=== PATIENT | male | born 1960 | race Caucasian/White ===

== ENCOUNTER 2017-04-20 19:46 | Emergency (ER) | payer OTHER ==
[~2017-04-20] VITALS: Ht 185.4 cm; Wt 73.9 kg
--- NOTE | 2017-04-20 20:17 | RAD ---
Exam performed: CT scan of the head without contrast. Date of Service: 04/20/2017. Comparison: None available. Clinical History: Fall, laceration to back of head. Technique: Helical acquisitions are obtained from the foramen magnum to the vertex without intravenous administration of contrast. Findings: The ventricles are midline without evidence of dilatation. Normal castorena-white differentiation is maintained. There is no extra axial fluid collection, intraparenchymal hemorrhage or mass lesion. The visualized portions of the orbits, paranasal sinuses and the mastoid air cells appear clear. The calvarium is intact. Impression: 1. No acute intracranial process detected. PQRS Compliance Statement: One or more of the following individualized dose reduction techniques were utilized for this examination: 1. Automated exposure control 2. Adjustment of the mA and/or kV according to patient size 3. Use of iterative reconstruction technique Electronically signed by: Lyndsey Abreu MD (04/20/2017 8:13 PM) [facility]
[2017-04-20] MEDS ORDERED: DIPHTH,PERTUSS(ACELL),TET TOX 0.5 ML DISP.SYRIN. VAX IM ONE (20:30)
[2017-04-20] MEDS ORDERED: LIDOCAINE 1%/EPI 1:100,000 20 ML VIAL. INJ ONE (20:30)
[2017-04-20] MEDS ORDERED: MORPHINE SULFATE 4 MG/ML DISP.SYRIN. IV ONE ×3 (20:30→23:00)
--- NOTE | 2017-04-20 21:07 | PHYS DOC ---
Past Medical History Past Medical History: Other Additional Past Medical Histor: bilat inguinal hernias Past Surgical History: Tonsillectomy, Other Additional Past Surgical Histo: Right inguinal hernia repair, & wisdom teeth Alcohol Use: None Drug Use: None Adult General Chief Complaint Chief Complaint: MECHANICAL FALL HPI HPI Patient is a 56 year old male who presents with a fall off a ladder. The report was that the patient fell proximally 7 feet from a ladder and struck the back of his head on concrete below. His was a bystander and stated the patient did not lose consciousness but was the use after the incident. He was unable to get up from the scene due to left hip pain. He also had a laceration to the back the head. He is unsure of his last tetanus immunization, he denies that he takes any blood thinners, no drugs or alcohol use today. He arrives via EMS with a c-collar in place and a wrap around his head. He received 200 g IV fentanyl in route. 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 He has bilateral inguinal hernias which he wears a wrap 4. Review of Systems Review of Systems Constitutional: Denies fever or chills [] Eyes: Denies change in visual acuity, redness, or eye pain [] HENT: Denies nasal congestion or sore throat [] Respiratory: Denies cough or shortness of breath [] Cardiovascular: Denies chest pain GI: Denies abdominal pain, nausea, vomiting, bloody stools or diarrhea [] : Denies dysuria or hematuria [] Musculoskeletal: Denies back pain, reports left hip pain Integument: Denies rash or skin lesions [] Neurologic: Denies headache, focal weakness or sensory changes [] Current Medications Current Medications Current Medications Medications (Trade) Dose Ordered Sig/Mohamud Start Time Stop Time Status Last Admin Dose Admin Diphtheria/ Tetanus/Acell Pertussis (Boostrix) 0.5 ml ONCE ONCE 04/20/17 20:30 04/20/17 20:31 DC 04/20/17 21:13 0.5 ML Lidocaine/ Epinephrine (Xylocaine 1%-Epi 1:100,000) 20 ml 1X ONCE 04/20/17 20:30 04/20/17 20:31 DC 04/20/17 20:30 20 ML Morphine Sulfate 4 mg 1X ONCE 04/20/17 21:30 04/20/17 21:31 Allergies Allergies Allergies Coded Allergies Type Severity Reaction Last Updated Verified No Known Drug Allergies 04/20/17 No Physical Exam Physical Exam Constitutional: Well developed, well nourished, no acute distress, non-toxic appearance. [] HENT: Normocephalic, posterior hematoma with 1 cm laceration with moderate hemostasis, no bogginess bilateral external ears normal, oropharynx moist, no oral exudates, nose normal. [] Eyes: PERRLA, EOMI, conjunctiva normal, no discharge. [] Neck: Normal range of motion, no midline step-off sore tenderness, supple, no stridor. [] Cardiovascular:Heart rate regular with regular rhythm, no murmur [] Lungs & Thorax: Bilateral breath sounds clear to auscultation, no wheeze or crackles without radial Abdomen: soft, no tenderness, no masses, no pulsatile masses. no guarding or peritoneal signs. Skin: Warm, dry, no erythema, no rash. [] Back: No tenderness, no CVA tenderness. [] Extremities: pelvis stable, Tenderness to palpation over the left lateral hip with inability to fully extend at the hip joint, hip flexors and a 45 angle,no ttp of the knee/no deformity. DP pulses intact, no obvious deformity or shortening, right lower extremity and bilateral upper extremities are nontender nondeformed Neurologic: Alert and oriented X 3, normal motor function with exception to affected hip, normal sensory function, no focal deficits noted. [] Psychologic: Affect normal, judgement normal, mood normal. [] Current Patient Data Vital Signs Vital Signs Date Time Temp Pulse Resp B/P (MAP) Pulse Ox O2 Delivery O2 Flow Rate FiO2 04/20/17 21:12 15 98 04/20/17 20:30 97.8 60 123/83 (96) Room Air 97.8 EKG EKG [] Radiology/Procedures Radiology/Procedures CT head: Findings: The ventricles are midline without evidence of dilatation. Normal castorena-white differentiation is maintained. There is no extra axial fluid collection, intraparenchymal hemorrhage or mass lesion. The visualized portions of the orbits, paranasal sinuses and the mastoid air cells appear clear. The calvarium is intact. Impression: 1. No acute intracranial process detected. Pelvis/left hip: No obvious femur injury, there is some irregularity of the left acetabulum, 3 views, interpreted by in Course & Med Decision Making Course & Med Decision Making Pertinent Labs and Imaging studies reviewed. (See chart for details) Patient seen to tetanus immunization, 4 mg IV morphine. His scalp wound was irrigated, using 1% lidocaine with epi infiltrated, 1 staple was placed over the small laceration. Patient tolerated well. Patient received an additional dose of IV morphine prior to the CT of his pelvis being performed. CT pending at 2100 and care was transferred to Dr. Lobato pending the results. Dragon Disclaimer Dragon Disclaimer This electronic medical record was generated, in whole or in part, using a voice recognition dictation system. Departure Departure Impression: Primary Impression: Scalp laceration Additional Impressions: Hematoma Injury of left hip Referrals: NO PCP (PCP) Problem Qualifiers DIANEN KITCHEN MD Apr 20, 2017 21:07
--- NOTE | 2017-04-20 22:17 | RAD ---
Exam performed: CT pelvis without contrast HISTORY: Patient fell from a ladder, severe left hip pain DATE OF SERVICE: 04/20/2017. COMPARISON: None available TECHNIQUE: Contiguous helical acquisitions are obtained through the pelvis without IV contrast. Sagittal and coronal reformatted images are obtained and reviewed. FINDINGS: Severely comminuted left acetabular fracture is seen involving the acetabular roof. The fracture line extends into the left iliac bone superiorly laterally. The fracture line extends into the anterior as well as the posterior column of the acetabulum. There is a fracture left inferior pubic ramus. There is a adjacent pelvic hematoma causing mild mass effect on the urinary bladder. Bilateral sacroiliac joints and the right hip joint appears preserved. The small and large bowel loops are nondilated and unremarkable. The urinary bladder is distended. No abnormal fluid collections or pelvic mass lesion seen. IMPRESSION: Severely comminuted left acetabular fracture with fractures involving the left inferior pubic ramus. PQRS Compliance Statement: One or more of the following individualized dose reduction techniques were utilized for this examination: 1. Automated exposure control 2. Adjustment of the mA and/or kV according to patient size 3. Use of iterative reconstruction technique Electronically signed by: Lyndsey Abreu MD (04/20/2017 10:14 PM) [facility]
[2017-04-20 23:01] LABS: BASO % 1 % (0-3); EOS % 3 % (0-3); HEMATOCRIT 41.3 % (39.0-53.0); HEMOGLOBIN 13.8 g/dL (13.0-17.5); LYMPH # 2.2 x10^3/uL (1.0-4.8); LYMPH % 28 % (24-48); MEAN CORPUSCULAR HEMOGLOBIN 32 pg (25-35); MEAN CORPUSCULAR HGB CONC 33 g/dL (31-37); MEAN CORPUSCULAR VOLUME 95 fL (79-100); MONO % 5 % (0-9); NEUT % 63 % (31-73); PLATELET COUNT 171 x10^3/uL (140-400); RED BLOOD COUNT 4.36 x10^6/uL (4.30-5.70); RED CELL DISTRIBUTION WIDTH 13.1 % (11.5-14.5); WHITE BLOOD COUNT 7.7 x10^3/uL (4.0-11.0)
[2017-04-20 23:11] LABS: INR 1.1 (0.8-1.1); PROTHROMBIN TIME PATIENT 13.1 SEC (11.7-14.0)
[2017-04-20 23:12] LABS: CALCIUM 8.9 mg/dL (8.5-10.1); CREATININE 1.2 mg/dL (0.7-1.3); GFR 62.9; POTASSIUM 3.9 mmol/L (3.5-5.1)
--- NOTE | 2017-04-20 23:16 | PHYS DOC ---
Past Medical History Past Medical History: Other Additional Past Medical Histor: bilat inguinal hernias Past Surgical History: Tonsillectomy, Other Additional Past Surgical Histo: Right inguinal hernia repair, & wisdom teeth Alcohol Use: None Drug Use: None Adult General Chief Complaint Chief Complaint: MECHANICAL FALL HPI HPI as per hpi from previous MD Review of Systems Review of Systems Constitutional: Denies fever or chills [] Eyes: Denies change in visual acuity, redness, or eye pain [] HENT: head pain Respiratory: Denies cough or shortness of breath [] Cardiovascular: No additional information not addressed in HPI [] GI: Denies abdominal pain, nausea, vomiting, bloody stools or diarrhea [] : Denies dysuria or hematuria [] Musculoskeletal:left hip pain Integument: Denies rash or skin lesions [] Neurologic: Denies headache, focal weakness or sensory changes [] Endocrine: Denies polyuria or polydipsia [] Current Medications Current Medications Current Medications Medications (Trade) Dose Ordered Sig/Mohamud Start Time Stop Time Status Last Admin Dose Admin Diphtheria/ Tetanus/Acell Pertussis (Boostrix) 0.5 ml ONCE ONCE 04/20/17 20:30 04/20/17 20:31 DC 04/20/17 21:13 0.5 ML Lidocaine/ Epinephrine (Xylocaine 1%-Epi 1:100,000) 20 ml 1X ONCE 04/20/17 20:30 04/20/17 20:31 DC 04/20/17 20:30 20 ML Morphine Sulfate 4 mg 1X ONCE 04/20/17 23:00 04/20/17 23:01 DC Allergies Allergies Allergies Coded Allergies Type Severity Reaction Last Updated Verified No Known Drug Allergies 04/20/17 No Physical Exam Physical Exam Constitutional: Well developed, well nourished, no acute distress, non-toxic appearance. [] HENT: Normocephalic, signs of basilar skull fracture, small laceration that is stapled Eyes: EOMI, conjunctiva normal, no discharge. [] Neck: Normal range of motion, no tenderness, supple, no stridor. No midline tenderness, no step-offs Cardiovascular:Heart rate regular rhythm, no murmur, deformity, no tenderness Lungs & Thorax: Bilateral breath sounds clear to auscultation, no tachypnea Abdomen: Bowel sounds normal, soft, no tenderness, no masses, no pulsatile masses. [] Skin: Warm, dry, no erythema, no rash. [] Back: No tenderness, no CVA tenderness. No step-offs Extremities: No tenderness, no cyanosis, no clubbing, ROM intact, no edema. Exception: Tenderness at left hip, no signs of compartment syndrome Neurologic: Alert and oriented X 3, normal motor function, no focal deficits noted. [] Psychologic: Affect normal, judgement normal, mood normal. [] Current Patient Data Vital Signs Vital Signs Date Time Temp Pulse Resp B/P (MAP) Pulse Ox O2 Delivery O2 Flow Rate FiO2 04/20/17 22:49 14 96 04/20/17 22:06 62 135/65 (88) Room Air 04/20/17 20:30 97.8 97.8 Lab Values Laboratory Tests Test 04/20/17 19:55 White Blood Count 7.7 x10^3/uL (4.0-11.0) Red Blood Count 4.36 x10^6/uL (4.30-5.70) Hemoglobin 13.8 g/dL (13.0-17.5) Hematocrit 41.3 % (39.0-53.0) Mean Corpuscular Volume 95 fL (79-100) Mean Corpuscular Hemoglobin 32 pg (25-35) Mean Corpuscular Hemoglobin Concent 33 g/dL (31-37) Red Cell Distribution Width 13.1 % (11.5-14.5) Platelet Count 171 x10^3/uL (140-400) Neutrophils (%) (Auto) 63 % (31-73) Lymphocytes (%) (Auto) 28 % (24-48) Monocytes (%) (Auto) 5 % (0-9) Eosinophils (%) (Auto) 3 % (0-3) Basophils (%) (Auto) 1 % (0-3) Neutrophils # (Auto) 4.8 x10^3uL (1.8-7.7) Lymphocytes # (Auto) 2.2 x10^3/uL (1.0-4.8) Monocytes # (Auto) 0.4 x10^3/uL (0.0-1.1) Eosinophils # (Auto) 0.2 x10^3/uL (0.0-0.7) Basophils # (Auto) 0.0 x10^3/uL (0.0-0.2) Laboratory Tests 04/20/17 19:55 EKG EKG [] Radiology/Procedures Radiology/Procedures CT: Acetabular fracture, pubic rami fracture, pelvic hematoma[] Course & Med Decision Making Course & Med Decision Making Pertinent Labs and Imaging studies reviewed. (See chart for details) 1704 d/w DR JACOBS accepts the transfer, [facility] [] Dragon Disclaimer Dragon Disclaimer This electronic medical record was generated, in whole or in part, using a voice recognition dictation system. Departure Departure Impression: Primary Impression: Scalp laceration Additional Impressions: Injury of left hip Hematoma Acetabular fracture Pubic ramus fracture Pelvic hematoma Disposition: 05 TRANSFER OTHER Condition: STABLE Referrals: NO PCP (PCP) Problem Qualifiers Hiram MOMIN MD Apr 20, 2017 23:16
[2017-04-20 23:30] VITALS: BP 123/64
--- NOTE | 2017-04-21 08:23 | RAD ---
Pelvic x-ray Indication: Fall with pain. Unable to move left leg. Technique: Multiple views of the pelvis Comparison: None Findings: Minimally displaced fracture through the left iliac bone noted with extension to the acetabulum. Nondisplaced fracture through the left inferior pubic ramus. No fractures of the femoral head or neck. Impression: Fracture of the left iliac bone and left inferior pubic ramus. Please see report on CT pelvis done on the same day for detailed findings.
== END 2017-04-21 00:20 | disposition short-term general hospital (02) ==
LOC: ER 19:46
DX: S32.492A Other specified fracture of left acetabulum, initial encounter for closed fracture (principal); S32.592A Other specified fracture of left pubis, initial encounter for closed fracture; S01.01XA Laceration without foreign body of scalp, initial encounter; W11.XXXA Fall on and from ladder, initial encounter; Y93.89 Activity, other specified; Y92.89 Other specified places as the place of occurrence of the external cause; Y99.8 Other external cause status
CPT/HCPCS: 12001; 36415; 70450; 72192; 73502; 80048; 85025; 85610; 90471; 90715; 96374; 96376; 99285; J2270; J3490

== ENCOUNTER 2017-06-17 09:42 | Day surgery (SDC) | payer OTHER ==
[~2017-06-17] VITALS: Ht 185.4 cm; Wt 73.9 kg
[~2017-06-17 09:42] MED LIST: ASPI325T8 PO; CALC600T4 PO; CREATINE; DEXAMETHASONE SOD PHOS 20 MG/5 ML VIAL. ONE; GLUC1CAP48 PO; HYDROmorphone 2 MG/ML VIAL IV PRN; IV RINGERS,LACTATED 1000ML 1,000 ML IV SCH; LIDOCAINE 1% PF 2 ML VIAL. ID PRN; LIDOCAINE 2% PF Vial for OR 5 ML VIAL. ONE; MELA3TAB2 PO; MIDAZOLAM HCL/PF 2 MG/2 ML VIAL. ONE; MORPHINE SULFATE 2 MG/ML DISP.SYRIN. IV PRN; NIAC500T PO; OMEG-117 PO; ONDANSETRON PF 4 MG/2 ML VIAL. IV PRN; ONDANSETRON PF 4 MG/2 ML VIAL. ONE; PROCHLORPERAZINE 10 MG/2 ML VIAL. IV PRN; PROPOFOL 20 ML IV ONE; fentaNYL PF VIAL 100 MCG/2 ML VIAL IV PRN
[2017-06-17] MEDS ORDERED: BUPIVACAINE-EPI 0.25%-1:200000 50 ML VIAL. ONE (10:29)
[2017-06-17] MEDS ORDERED: SEVOFLURANE 31 TO 60 MINUTES. IH ONE (11:27)
--- NOTE | 2017-06-17 12:10 | PDOC4 ---
Operative Note Operative Note Date 06/17/2017 Preoperative diagnosis: Left inguinal hernia Postoperative diagnosis: Same Procedure: Left inguinal hernia repair with mesh Surgeon: Esau Specimen: Cord lipoma Dictation: Patient is a 56-year-old gentleman who's complained of a painful bulge in the left groin. The procedure of left inguinal hernia repair was explained to the patient detail risks benefits were also discussed including bleeding infection alternatives to this procedure also discussed with the patient seemed understanding gave both verbal and written consent to have the procedure performed. Patient was taken to the operating room placed in the supine position general anesthesia was initiated once patient was asleep and intubated his left groin was prepped and draped usual sterile fashion using ChloraPrep and area of the external canal was injected quarter percent Marcaine with epinephrine incision was made with 10 blade scalpel was carried down through the subcutaneous tissues down to the external fascia this was partially open with 15 blade scalpel further or open meds pump scissors taking great care to protect the ilioinguinal nerve. A Caroline retractor was placed and the cord structures were encircled with a Tabor drain hernia sac was taken off of the other cord structures were returned to the floor the inguinal canal hernia sac was reduced and a mesh plug was placed in the hernia defect mesh overlay was then placed on the floor the anal canal this was sewn in circumferentially with 3-0 Prolene. The external fascia was then closed with a running 0 Vicryl the deep subcutaneous layers closed running 3-0 Vicryl and the skin was approximate 4 septic Monocryl Mastisol Steri-Strips and 4 x 4's Medpor tape were applied as dressing. The patient was awakened and extubated in the operating room taken recovery in stable condition all sponge instrument needle counts listed as correct. Estimated blood loss 10 mL KRISTEN RUDOLPH MD Jun 17, 2017 12:10
--- NOTE | 2017-06-17 12:11 | DISCH ---
DISCHARGE INSTRUCTIONS Condition on Discharge Condition on Discharge: Stable Activity After Discharge Activity Instructions for Disc: Avoid exertion Other activity instructions: No lifting >20lbs for 4 weeks Diet after Discharge Diet after Discharge: Regular Wound Incision Care Other wound/incision instructi: May shower in 24 hours Contacting the after DC Call your doctor for: If your condition worsens Follow-Up Follow up with: Dr Rudolph in 2 weeks KRISTEN RUDOLPH MD Jun 17, 2017 12:11
[2017-06-17] MEDS ORDERED: oxyCODONE/APAP 5/325 1 TAB TABLET ONE (13:04)
[2017-06-17] MEDS ORDERED: OXYC-323 PO (13:13)
[2017-06-17 13:14] VITALS: BP 127/70
[2017-06-17] MEDS ORDERED: oxyCODONE/APAP 5/325 1 TAB TABLET PO ONE (13:15)
--- NOTE | 2017-06-18 20:12 | PATHOLOGY ---
PATHOLOGY REPORT * * * * * * * * FINAL DIAGNOSIS: Segment of fibroadipose tissue, left inguinal hernia repair: - Consistent with lipoma of cord. (JPM:pit; 06/18/2017) REPORT ELECTRONICALLY SIGNED BY: Gallito Huntley M.D. DATE/TIME: 06/18/2017 14:40 * * * * * * * * GROSS PATHOLOGY: Received in formalin labeled "Aj Mirza, left inguinal cord lipoma," is a segment of lobulated fibroadipose tissue with attached fibromembranous tissue measuring 7.1 x 3.0 x 2.1 cm in maximum dimensions. Sectioning reveals homogeneous, bright yellow cut surfaces. Script Coordinator tissue is submitted in cassette A1. (TSD; 06/17/2017) INITIAL CPT CODE(S): A; 71952 Professional services performed [place] [address] Technical services performed by [facility] at [address] [place] [address], [facility] [address], [place] [address]. SPECIMEN(S) RECEIVED: A.Left inguinal cord lipoma CLINICAL HISTORY: Inguinal hernia PATIENT: AJ MIRZA /AGE: 310/14/1960 (Age: 56) PATIENT #: [id number] ALT CASE #: SPECIMEN COLLECTION DATE: 06/17/2017 SPECIMEN RECEIVED DATE: 06/17/2017 [facility] - [address] [place] [address] - PHONE: [phone] * * * END OF REPORT * * *
== END 2017-06-17 14:00 | disposition home or self-care (01) ==
LOC: SURG 09:42
PROVIDERS: ATTEND Surgery
DX: K40.90 Unilateral inguinal hernia, without obstruction or gangrene, not specified as recurrent (principal); E66.9 Obesity, unspecified; Z68.21 Body mass index [BMI] 21.0-21.9, adult; I10 Essential (primary) hypertension; F10.99 Alcohol use, unspecified with unspecified alcohol-induced disorder; F17.210 Nicotine dependence, cigarettes, uncomplicated; Z72.89 Other problems related to lifestyle
CPT/HCPCS: 49505; 88304; A4215; C1781; J0690; J1100; J2250; J2405; J2704; J3010; J7120; J2001

== ENCOUNTER 2020-02-27 12:00 | Emergency (ER) | payer OTHER ==
[~2020-02-27 12:00] MED LIST changes: -CALC600T4 PO; +CALC600T6 PO; -DEXAMETHASONE SOD PHOS 20 MG/5 ML VIAL. ONE; -HYDROmorphone 2 MG/ML VIAL IV PRN; -IV RINGERS,LACTATED 1000ML 1,000 ML IV SCH; -LIDOCAINE 1% PF 2 ML VIAL. ID PRN; -LIDOCAINE 2% PF Vial for OR 5 ML VIAL. ONE; -MELA3TAB2 PO; +MELA3TAB4 PO; -MIDAZOLAM HCL/PF 2 MG/2 ML VIAL. ONE; -MORPHINE SULFATE 2 MG/ML DISP.SYRIN. IV PRN; -ONDANSETRON PF 4 MG/2 ML VIAL. IV PRN; -ONDANSETRON PF 4 MG/2 ML VIAL. ONE; +OXYC1TAB15 PO; -PROCHLORPERAZINE 10 MG/2 ML VIAL. IV PRN; -PROPOFOL 20 ML IV ONE; -fentaNYL PF VIAL 100 MCG/2 ML VIAL IV PRN
== END 2020-02-27 12:27 | disposition left against medical advice (07) ==
LOC: ER 12:00
DX: H53.142 Visual discomfort, left eye (principal); Z53.21 Procedure and treatment not carried out due to patient leaving prior to being seen by health care provider